=== PATIENT | male | born 1945 | race Caucasian/White ===

== ENCOUNTER 2020-07-10 17:48 | Inpatient (IN) | payer MEDICARE ==
[2020-07-10 20:58] VITALS: BMI 30.8
[2020-07-10] MEDS: HYDROcodone/Acetaminophen 10/325 mg Tablet PO PRN (21:19)
[2020-07-11] MEDS: HYDROcodone/Acetaminophen 10/325 mg Tablet PO PRN ×2 (02:23→12:48)
[2020-07-11] MEDS ORDERED: Morphine 4 MG/ML VIAL SLOW IVP SCH (03:45)
[2020-07-11] MEDS ORDERED: Morphine 4 MG/ML VIAL SLOW IVP PRN (07:48)
[2020-07-11] MEDS ORDERED: Bisacodyl 10 MG SUPP PR PRN (07:48)
[2020-07-11] MEDS: Polyethylene Glycol 3350 17 GM Packet PO SCH (08:33)
[2020-07-11] MEDS: Atorvastatin Calcium 10 MG TAB PO SCH (08:33)
[2020-07-11] MEDS: Docusate Sodium 100 MG/10 ML UDCUP PO SCH (08:33)
[2020-07-11] MEDS: Multivitamin W/ Minerals 1 TAB PO SCH (08:33)
[2020-07-11] MEDS: Dutasteride 0.5 MG CAP PO SCH (08:33)
[2020-07-11] MEDS: Cholecalciferol 1,000 UNITS (25 MCG) TAB PO SCH (08:33)
[2020-07-11] MEDS: Metoprolol Tartrate 25 MG TAB PO SCH (08:34)
[2020-07-11] MEDS: Triamterene/Hydrochlorothiazide 37.5 mg/25 mg Tablet PO SCH (08:34)
--- NOTE | 2020-07-12 07:00 | RAD ---
ABDOMEN: DATE: 07/11/2020. FINDINGS: Comparison is made with the 07/07 study. There is moderate gaseous distention of the colon, but I do not believe it is overtly obstructed. Some of the transverse loops are as wide as 7.8 cm. There is still stool in the colon, but there is considerably less than there was on 07/07. There is some gener al increased opacity in the mid pelvic region. This could be a distended urinary bladder, but the fi nding is nonspecific. IMPRESSION: Moderate gaseous distention of the colon, probably without overt obstruction. Still a fair amount of stool in the colon but less than there was several days ago. POS: HOME
[2020-07-12] MEDS: Cholecalciferol 1,000 UNITS (25 MCG) TAB PO SCH (08:43)
[2020-07-12] MEDS: Polyethylene Glycol 3350 17 GM Packet PO SCH (08:43)
[2020-07-12] MEDS: Docusate Sodium 100 MG/10 ML UDCUP PO SCH (08:43)
[2020-07-12] MEDS: Triamterene/Hydrochlorothiazide 37.5 mg/25 mg Tablet PO SCH (08:43)
[2020-07-12] MEDS: Atorvastatin Calcium 10 MG TAB PO SCH (08:43)
[2020-07-12] MEDS: Senokot 8.6 MG TAB PO SCH (08:44)
[2020-07-12] MEDS: Dutasteride 0.5 MG CAP PO SCH (08:44)
[2020-07-12] MEDS: Metoprolol Tartrate 25 MG TAB PO SCH (08:44)
[2020-07-12] MEDS: Multivitamin W/ Minerals 1 TAB PO SCH (08:44)
[2020-07-13 06:38] VITALS: BP 113/66; TEMP 99.1
[2020-07-13] MEDS: Dutasteride 0.5 MG CAP PO SCH (09:43)
[2020-07-13] MEDS: Metoprolol Tartrate 25 MG TAB PO SCH (09:43)
[2020-07-13] MEDS: Atorvastatin Calcium 10 MG TAB PO SCH (09:43)
[2020-07-13] MEDS: Multivitamin W/ Minerals 1 TAB PO SCH (09:44)
[2020-07-13] MEDS: Polyethylene Glycol 3350 17 GM Packet PO SCH (09:44)
[2020-07-13] MEDS: Senokot 8.6 MG TAB PO SCH (09:44)
[2020-07-13] MEDS: Triamterene/Hydrochlorothiazide 37.5 mg/25 mg Tablet PO SCH (09:44)
[2020-07-13] MEDS: Cholecalciferol 1,000 UNITS (25 MCG) TAB PO SCH (09:44)
[2020-07-13] MEDS: Docusate Sodium 100 MG/10 ML UDCUP PO SCH (09:45)
--- NOTE | 2020-07-14 02:13 | DIS ---
DATE OF ADMISSION: 07/10/2020 DATE OF DISCHARGE: 07/13/2020 ADMISSION DIAGNOSES: Metastatic lung cancer to brain and bone, generalized weakness with development of lower extremity flaccid paralysis, right iliac wing fracture pathologic in nature, paroxysmal atrial fibrillation, hypertension, lower extremity edema, and constipation. PROCEDURES PERFORMED: None. HOSPITAL COURSE: A 74-year-old male with history of lung cancer with noted metastasis to his brain and bones, most recently followed by Oncology, Dr. Sofia, along with recent established care at [facility], transitioned from [facility] in [place] to our facility at [facility] to participate with Physical Therapy and Occupational Therapy. The patient has had progressive weakness with recent sustained falls, which did prompt his admission to the hospital in [place]. While there, he had imaging including a lumbar spine CT scan showing moderate lumbar spondylosis with multilevel degenerative disk disease and facet osteoarthritis, focal Schmorl's node fracture of inferior endplate of L3, which may not be chronic; questionably involve 2 cm osteolytic lesions of the L3 vertebral body. Given the history of malignancy, this raised the possibilities of bone metastasis. CT of the brain showed a left frontal lobe intraparenchymal mass with associated vasogenic edema. Metastasis is favored. Secondary to the brain imaging, he has been advised for discontinuation of anticoagulant therapy in regard to his history of atrial fibrillation. He remains rate controlled otherwise. As stated, the [facility] to participate with therapy. 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 The plan was for potential initiation of immunotherapy through coordination between Dr. Sofia and [facility]. I did speak with Dr. Dove at [facility] yesterday regarding the patient's deteriorating condition and secondary to this, they have agreed to transfer his care there under the hospitalist service for further intervention in regards to his metastatic cancer. This has been arranged and the patient is to transfer to their facility today. It should be noted that in [place] prior to coming here, he did have a positive COVID test. However, the subsequent COVID test on 07/11 has returned negative. He is completely asymptomatic in regard to this potential issue. It is also noted from the discharge summary from [place] that testing on a couple different occasions within the last two weeks for COVID were negative prior to the single positive test. DISPOSITION: The patient will discharge from our facility to [facility] under the care of the hospitalist service with further treatment to follow via Oncology. DISCHARGE MEDICATIONS: Include: 1. Atorvastatin 20 mg daily. 2. Dulcolax 10 mg per rectum daily as needed. 3. Cholecalciferol 2000 units daily. 4. Docusate sodium 100 mg daily. 5. Avodart 0.5 mg daily. 6. Holcombe 10/325 one tab q.4 hours p.r.n. 7. Theragran multivitamin one tablet daily. 8. Metoprolol tartrate 50 mg daily. 9. Morphine 4 mg IV q.6 hours p.r.n. 10. MiraLAX 17 g p.o. daily. 11. Senokot one tablet daily. 12. Triamterene/hydrochlorothiazide 37.5-25 mg daily. TIME SPENT: Planning and discharge of this patient have taken 32 minutes. Job ID: [id number]
== END 2020-07-13 10:55 | disposition short-term general hospital (02) | DRG 542 ==
LOC: BURMED 19:31
PROVIDERS: ADMIT Family Medicine; ATTEND Family Medicine
DX: C79.51 Secondary malignant neoplasm of bone (principal); G93.6 Cerebral edema; C34.90 Malignant neoplasm of unspecified part of unspecified bronchus or lung; C79.31 Secondary malignant neoplasm of brain; M84.48XA Pathological fracture, other site, initial encounter for fracture; R53.1 Weakness; G83.89 Other specified paralytic syndromes; I48.0 Paroxysmal atrial fibrillation; I10 Essential (primary) hypertension; K59.00 Constipation, unspecified; R15.9 Full incontinence of feces; R32 Unspecified urinary incontinence; M47.816 Spondylosis without myelopathy or radiculopathy, lumbar region; M51.36 Other intervertebral disc degeneration, lumbar region
CPT/HCPCS: 74018; J2270